=== PATIENT | female | born 1975 | race Caucasian/White ===

== ENCOUNTER 2022-08-14 23:29 | Inpatient (IN) | payer BC ==
[2022-08-15 00:05] VITALS: BMI 23.0
[2022-08-15] MEDS ORDERED: IBUPROFEN 400 MG TABLET (FP) PO PRN (06:22)
[2022-08-15] MEDS ORDERED: BENZONATATE 200 MG CAPSULE PO PRN (06:22)
[2022-08-15] MEDS ORDERED: IBUPROFEN 600 MG TABLET (FP) PO PRN (06:22)
[2022-08-15] MEDS ORDERED: NALOXONE HCL (KLOXXADO) 8 MG SPRAY NS PRN (06:22)
[2022-08-15] MEDS ORDERED: ACETAMINOPHEN 325 MG TABLET (FP) PO PRN (06:22)
[2022-08-15] MEDS ORDERED: DICYCLOMINE HCL 10 MG CAPSULE PO PRN (06:22)
[2022-08-15] MEDS ORDERED: guaiFENesin 600 MG TABLET.ER (FP) PO PRN (06:22)
[2022-08-15] MEDS ORDERED: MAG HYDROX/AL HYDROX/SIMETH 30 ML UNIT-DOSE CUP PO PRN (06:22)
[2022-08-15] MEDS ORDERED: POLYETHYLENE GLYCOL (HEALTHYLAX) 3350 17 GM PACKET PO PRN (06:22)
[2022-08-15] MEDS ORDERED: BENZOCAINE/MENTHOL (CHLORASEPTIC ) LOZENGE MM PRN (06:22)
[2022-08-15] MEDS ORDERED: ONDANSETRON *ODT* 4 MG TABLET SL PRN (06:22)
[2022-08-15] MEDS ORDERED: MAGNESIUM HYDROX 2400MG/30ML ORAL SUSPENSION 30 ML CUP PO PRN (06:22)
[2022-08-15] MEDS ORDERED: NALOXONE HCL 0.4 MG/ML VIAL IM PRN (06:22)
[2022-08-15] MEDS ORDERED: BISMUTH SUBSALICYLATE 524 MG/30 ML PO PRN (06:22)
[2022-08-15] MEDS: hydrOXYzine PAMOATE 25 MG CAPSULE (FP) PO PRN (07:44)
[2022-08-15] MEDS: METHOCARBAMOL 500 MG TABLET PO PRN ×2 (07:44→13:39)
[2022-08-15] MEDS: PRENATAL VITAMINS W/ FOLIC ACID TABLET (FP) PO SCH (10:36)
[2022-08-15] MEDS ORDERED: methaDONE HCL 10 MG TABLET (FOR DETOX USE ONLY) PO ONE (13:23)
[2022-08-15] MEDS: THIAMINE HCL 100 MG TABLET (FP) PO SCH (22:10)
[2022-08-15] MEDS: MELATONIN 5 MG TABLETS PO SCH (22:11)
[2022-08-16] MEDS: PRENATAL VITAMINS W/ FOLIC ACID TABLET (FP) PO SCH (10:16)
[2022-08-16] MEDS: METHOCARBAMOL 500 MG TABLET PO PRN ×2 (10:16→18:24)
[2022-08-16] MEDS: hydrOXYzine PAMOATE 25 MG CAPSULE (FP) PO PRN ×2 (12:41→22:23)
[2022-08-16] MEDS: THIAMINE HCL 100 MG TABLET (FP) PO SCH (22:23)
[2022-08-16] MEDS: MELATONIN 5 MG TABLETS PO SCH ×2 (22:23→23:35)
[2022-08-17] MEDS ORDERED: ALBUTEROL SO4 HFA INHALER IH PRN (08:00)
[2022-08-17] MEDS: LOPERAMIDE HCL 2 MG CAPSULE PO PRN (08:13)
[2022-08-17] MEDS ORDERED: methaDONE HCL 10 MG TABLET (FOR DETOX USE ONLY) PO ONE (10:00)
[2022-08-17] MEDS: METHOCARBAMOL 500 MG TABLET PO PRN ×2 (10:14→17:19)
[2022-08-17] MEDS: PRENATAL VITAMINS W/ FOLIC ACID TABLET (FP) PO SCH (10:14)
[2022-08-17] MEDS: cloNIDine HCL 0.1 MG TABLET PO PRN ×3 (12:17→22:30)
[2022-08-17] MEDS: hydrOXYzine PAMOATE 25 MG CAPSULE (FP) PO PRN (17:19)
[2022-08-17] MEDS: THIAMINE HCL 100 MG TABLET (FP) PO SCH (22:30)
[2022-08-17] MEDS: MELATONIN 5 MG TABLETS PO SCH (22:30)
[2022-08-18] MEDS: hydrOXYzine PAMOATE 25 MG CAPSULE (FP) PO PRN ×3 (01:26→17:34)
[2022-08-18] MEDS: LOPERAMIDE HCL 2 MG CAPSULE PO PRN ×2 (08:54→14:48)
[2022-08-18] MEDS: METHOCARBAMOL 500 MG TABLET PO PRN ×2 (10:12→23:30)
[2022-08-18] MEDS: PRENATAL VITAMINS W/ FOLIC ACID TABLET (FP) PO SCH (10:12)
[2022-08-18] MEDS: cloNIDine HCL 0.1 MG TABLET PO PRN ×2 (13:55→23:30)
[2022-08-18] MEDS: THIAMINE HCL 100 MG TABLET (FP) PO SCH (22:49)
[2022-08-18] MEDS: MELATONIN 5 MG TABLETS PO SCH (22:49)
[2022-08-19] MEDS: hydrOXYzine PAMOATE 25 MG CAPSULE (FP) PO PRN ×4 (02:35→22:21)
[2022-08-19] MEDS ORDERED: methaDONE HCL 10 MG TABLET (FOR DETOX USE ONLY) PO ONE (10:00)
[2022-08-19] MEDS: PRENATAL VITAMINS W/ FOLIC ACID TABLET (FP) PO SCH (10:29)
[2022-08-19] MEDS: cloNIDine HCL 0.1 MG TABLET PO PRN ×3 (10:29→22:21)
[2022-08-19] MEDS: METHOCARBAMOL 500 MG TABLET PO PRN ×2 (10:29→17:27)
[2022-08-19] MEDS: MELATONIN 5 MG TABLETS PO SCH (22:20)
[2022-08-19] MEDS: THIAMINE HCL 100 MG TABLET (FP) PO SCH (22:21)
[2022-08-20] MEDS: METHOCARBAMOL 500 MG TABLET PO PRN (01:47)
[2022-08-20 06:42] VITALS: BP 112/70; PULSE 46; RESP 16; TEMP 97.5
== END 2022-08-20 08:56 | disposition home or self-care (01) | DRG 897 ==
LOC: YASAS 23:29 → Y6N 08-15 07:31
PROVIDERS: ADMIT Allergy & Immunology; ATTEND Surgery
PROC: HZ2ZZZZ Detoxification Services for Substance Abuse Treatment (ICD-10-PCS; principal; 2022-08-15)
DX: F11.23 Opioid dependence with withdrawal (principal); F14.20 Cocaine dependence, uncomplicated; F19.24 Other psychoactive substance dependence with psychoactive substance-induced mood disorder; F41.9 Anxiety disorder, unspecified; F32.A Depression, unspecified; I10 Essential (primary) hypertension; J45.909 Unspecified asthma, uncomplicated; Z87.891 Personal history of nicotine dependence; Z86.19 Personal history of other infectious and parasitic diseases
CPT/HCPCS: 81025; 93005; 93010; C9803-CS; U0003; U0005

== ENCOUNTER 2024-12-30 17:03 | Emergency (ER) | payer BC, OTHER ==
[2024-12-30 17:14] VITALS: TEMP 98.2; BMI 42.0
[2024-12-30] MEDS ORDERED: MAG HYDROX/AL HYDROX/SIMETH 30 ML UNIT-DOSE CUP ONE (18:25)
[2024-12-30] MEDS ORDERED: ONDANSETRON 4 MG/2 ML VIAL ONE (18:26)
[2024-12-30] MEDS ORDERED: FAMOTIDINE 20 MG/50 ML IVPB 20 MG/50 ML MG IVPB ONE (18:26)
[2024-12-30] MEDS: FAMOTIDINE 20 MG/50 ML IVPB 20 MG/50 ML MG IVPB ONE (18:36)
[2024-12-30] MEDS: ONDANSETRON 4 MG/2 ML VIAL IVPUSH ONE (18:36)
[2024-12-30] MEDS: MAG HYDROX/AL HYDROX/SIMETH 30 ML UNIT-DOSE CUP PO ONE (18:36)
[2024-12-30 18:45] LABS: RDW 15.6 % (12.2-17.1)
[2024-12-30 18:47] LABS: ABSOLUTE IMMATURE GRANULOCYTES 0.01 x10^3/uL (0.0-0.031); BASOPHILS # 0.01 x10^3/uL (0.01-0.08); IMMATURE PLATELET FRACTION # 7.90 x10^3/uL
[2024-12-30 18:58] LABS: EOSINOPHIL % 3.3 % (0.7-5.8); EOSINOPHILS # 0.09 x10^3/uL (0.04-0.36); GLUCOSE,RANDOM 85.0 mg/dL (74-106); MCHC 29.7 g/dl (32.2-35.5); MEAN CELL VOLUME 78.1 fl (79.4-94.8); MONOCYTE # 0.22 x10^3/uL (0.24-0.86); MONOCYTE % 8.1 % (4.7-12.5); TOT PROT 6.7 g/dl (6.4-8.2)
[2024-12-30 18:59] LABS: CO2 26.0 mmol/L (21-32)
[2024-12-30 19:01] LABS: ALK PHOS 109.0 U/L (40-150)
[2024-12-30 19:03] LABS: SGPT/ALT 24.0 U/L (0-55)
[2024-12-30 19:04] LABS: CREATININE 0.71 mg/dL (0.55-1.3); SGOT/AST 46.0 U/L (5-34)
[2024-12-30 19:24] LABS: HIV INTERPRETATION NEGATIVE (NEGATIVE)
[2024-12-30 20:11] LABS: HCV DIAGNOSTIC IN-HOUSE W/RFLX REACTIVE (NONREACTIVE)
[2024-12-30 22:11] VITALS: BP 129/80; PULSE 72; RESP 14
== END 2024-12-30 23:07 | disposition home or self-care (01) ==
LOC: JER 17:03
PROC: 3E033GC Introduction of Other Therapeutic Substance into Peripheral Vein, Percutaneous Approach (ICD-10-PCS; principal; 2024-12-30)
PROC: 3E033GC Introduction of Other Therapeutic Substance into Peripheral Vein, Percutaneous Approach (ICD-10-PCS; 2024-12-30)
DX: M79.672 Pain in left foot (principal); R10.13 Epigastric pain; R10.31 Right lower quadrant pain; R14.0 Abdominal distension (gaseous); R16.0 Hepatomegaly, not elsewhere classified; R60.1 Generalized edema; K74.60 Unspecified cirrhosis of liver; B19.20 Unspecified viral hepatitis C without hepatic coma; D61.818 Other pancytopenia; R07.89 Other chest pain
CPT/HCPCS: 36415; 71045-TC-FY; 74177-TC; 80053; 84484; 84703; 85025; 85379; 86803; 87389; 87522; 93005; 93010; 93970-TC; 99285-25; Q9967